=== PATIENT | male | born 1975 | race Caucasian/White ===

== ENCOUNTER 2023-11-19 14:18 | Outpatient (CLI) | payer MEDICARE, MEDICAID ==
[~2023-11-19] VITALS: Ht 198.1 cm; Wt 115.2 kg
[2023-11-19 14:40] LABS: TOTAL HEMOGLOBIN 15.2 G/dl (14.0-17.9)
[2023-11-19] MEDS: albuterol 2.5 MG/3 ML nebule NEB ONE (15:09)
[2023-11-19 15:13] VITALS: PULSE 75; RESP 14; O2SAT 96
== END 2023-11-19 23:59 | disposition home or self-care (01) ==
LOC: RT 14:18
PROVIDERS: ATTEND Nurse Practitioner Family
DX: R05.9 Cough, unspecified (principal); R06.02 Shortness of breath; R06.2 Wheezing
CPT/HCPCS: 85018; 94060; 94727; 94729; 94760